=== PATIENT | female | born 1990 | race American Indian/Alaskan Native ===

== ENCOUNTER 2016-12-25 17:48 | Emergency (ER) | payer MEDICAID, OTHER ==
[2016-12-25 18:28] VITALS: BP 101/57
== END 2016-12-26 02:24 | disposition left against medical advice (07) ==
LOC: ED 17:48
DX: R10.9 Unspecified abdominal pain (principal); Z53.21 Procedure and treatment not carried out due to patient leaving prior to being seen by health care provider

== ENCOUNTER 2017-02-26 13:54 | Emergency (ER) | payer MEDICAID ==
[2017-02-26] MEDS ORDERED: NACL 0.9% 1000 ML 1,000 ML IV ONE (16:35)
--- NOTE | 2017-02-26 16:40 | Emergency Department Report ---
HPI - General Chief Complaint: Syncope Time Seen by Provider: 02/26/17 16:27 - HPI HPI: Room 21 The patient is 26 should female presenting with a chief complaint of syncopal episode. The patient states for 1 week she has felt weak when standing for an extended period of time. The patient states she saw her BRANCH OFFICER about this yesterday and was encouraged to take her iron tablets. Today the patient was at work and states that things "got blurry" and that she passed out. The patient states she awakened to see EMS. When asked how she is feeling around the patient replies she feels "okay." Patient denies any chest pain or abdominal pain cough or vaginal bleeding. Location: [see above] Duration: [see above] Quality: Syncope Severity: [see above] Modifying factors: [see above] Context: [see above] Mode of transportation: [not driving] ED Past Medical Hx - Past Medical History Hx Asthma: Yes Additional medical history: GALLSTONES, Anemia - Surgical History Additional Surgical History: - Family History Family history: no significant - Social History Smoking Status: Never Smoker Substance Use Type: None - Medications Home Medications: Home Medications Medication Instructions Recorded Confirmed Last Taken Type Docusate Sodium [Colace] 100 mg PO BID PRN #60 capsule 05/11/14 Unknown Rx Ferrous Sulfate [Feosol 325 MG tab] 325 mg PO QDAY #30 tablet 05/11/14 Unknown Rx Ibuprofen [Motrin 800 MG tab] 800 mg PO TID PRN #30 tablet 05/11/14 Unknown Rx oxyCODONE /ACETAMINOPHEN [Percocet 1 tab PO Q6HR PRN #30 tablet 05/11/14 Unknown Rx 5/325] ED Review of Systems ROS: Stated complaint: SYNCOPE Other details as noted in HPI Comment: All other systems reviewed and negative Constitutional: weakness. denies: chills, fever Eyes: as per HPI ENT: denies: ear pain, throat pain Respiratory: denies: cough, wheezing Cardiovascular: denies: chest pain, palpitations Endocrine: no symptoms reported Gastrointestinal: denies: abdominal pain, nausea, diarrhea Genitourinary: denies: urgency, dysuria, discharge Musculoskeletal: denies: back pain, joint swelling, arthralgia Skin: denies: rash, lesions Neurological: other (syncope) Psychiatric: denies: anxiety, depression Hematological/Lymphatic: denies: easy bleeding, easy bruising Physical Exam - Physical Exam Vital Signs: Vital Signs 02/26/17 02/26/17 14:57 15:04 Temperature 97.9 F 97.9 F Pulse Rate 80 80 Respiratory 16 16 Rate Blood Pressure 94/42 Blood Pressure 94/42 [Right] O2 Sat by Pulse 96 96 Oximetry Physical Exam: GENERAL: The patient is well-developed well-nourished female lying on stretcher not appearing to be in acute distress. [] HEENT: Normocephalic. Atraumatic. Extraocular motions are intact. Patient has moist mucous membranes. NECK: Supple. No meningitic signs are noted. Trachea midline CHEST/LUNGS: Clear to auscultation. There is no respiratory distress noted. HEART/CARDIOVASCULAR: Regular. There is no tachycardia. There is no gallop rub or murmur. ABDOMEN: Abdomen is soft, nontender. Patient has normal bowel sounds. The patient is gravid SKIN: There is no rash. There is no edema. There is no diaphoresis. NEURO: The patient is awake, alert, and oriented. The patient is cooperative. The patient has no focal neurologic deficits. The patient has normal speech. Cranial nerves II through XII grossly intact, no drift MUSCULOSKELETAL: There is no evidence of acute injury. ED Course Vital Signs 02/26/17 02/26/17 14:57 15:04 Temperature 97.9 F 97.9 F Pulse Rate 80 80 Respiratory 16 16 Rate Blood Pressure 94/42 Blood Pressure 94/42 [Right] O2 Sat by Pulse 96 96 Oximetry ED Medical Decision Making - Lab Data Result diagrams: 02/26/17 16:45 02/26/17 16:45 Laboratory Tests 02/26/17 02/26/17 02/26/17 16:45 16:45 16:45 WBC 4.8 RBC 3.04 L Hgb 9.0 L Hct 26.8 L MCV 88 MCH 30 MCHC 33 RDW 16.1 H Plt Count 160 Lymph % (Auto) 28.5 [place] % (Auto) 4.3 Eos % (Auto) 0.1 Baso % (Auto) 0.3 Lymph # 1.4 [place] # 0.2 Eos # 0.0 Baso # 0.0 Seg Neutrophils % 66.8 Seg Neutrophils # 3.2 PT 12.9 INR 0.98 APTT 30.0 Sodium 133 L Potassium 3.2 L Chloride 99.2 Carbon Dioxide 21 L Anion Gap 16 BUN 6 L Creatinine 0.3 L Estimated GFR > 60 BUN/Creatinine Ratio 20.00 Glucose 82 Calcium 8.3 L Total Bilirubin 0.2 AST 14 ALT 6 L Alkaline Phosphatase 61 Total Creatine Kinase CK-MB (CK-2) CK-MB (CK-2) Rel Index Troponin T Total Protein 6.6 Albumin 3.2 L Albumin/Globulin Ratio 0.9 Urine Color Urine Turbidity Urine pH Ur Specific [place] Urine Protein Urine Glucose (UA) Urine Ketones Urine Blood Urine Nitrite Urine Bilirubin Urine Urobilinogen Ur Leukocyte Esterase Urine WBC (Auto) Urine RBC (Auto) U Epithel Cells (Auto) 02/26/17 02/26/17 16:45 17:52 WBC RBC Hgb Hct MCV MCH MCHC RDW Plt Count Lymph % (Auto) [place] % (Auto) Eos % (Auto) Baso % (Auto) Lymph # [place] # Eos # Baso # Seg Neutrophils % Seg Neutrophils # PT INR APTT Sodium Potassium Chloride Carbon Dioxide Anion Gap BUN Creatinine Estimated GFR BUN/Creatinine Ratio Glucose Calcium Total Bilirubin AST ALT Alkaline Phosphatase Total Creatine Kinase 31 CK-MB (CK-2) < 1.0 CK-MB (CK-2) Rel Index 3.2 Troponin T < 0.010 Total Protein Albumin Albumin/Globulin Ratio Urine Color Yellow Urine Turbidity Clear Urine pH 7.0 Ur Specific [place] 1.008 Urine Protein <15 mg/dl Urine Glucose (UA) Neg Urine Ketones 20 Urine Blood Neg Urine Nitrite Neg Urine Bilirubin Neg Urine Urobilinogen < 2.0 Ur Leukocyte Esterase Neg Urine WBC (Auto) < 1.0 Urine RBC (Auto) 1.0 U Epithel Cells (Auto) 2.0 - EKG Data -: EKG Interpreted by [place] EKG shows normal: sinus rhythm Rate: normal - EKG Data When compared to previous EKG there are: previous EKG unavailable Interpretation: nonspecific ST-T wave [place] - Differential Diagnosis symptomatic anemia, dehydration, vasovagal syncope Critical care attestation.: If time is entered above; I have spent that time in minutes in the direct care of this critically ill patient, excluding procedure time. ED Disposition Clinical Impression: Syncope, Dehydration, Hypokalemia Disposition: DISCHARGED TO HOME OR SELFCARE Is pt being admited?: No Does the pt Need Aspirin: No Condition: Stable Instructions: Syncope (ED) Additional Instructions: Return to the emergency department immediately should you develop worsening symptoms, fever, inability to tolerate food or liquid or any other concerns. Referrals: PRIMARY CARE, [Primary Care Provider] - 3-5 Days Time of Disposition: 19:06
[2017-02-26 17:30] LABS: Basophils % (Auto) 0.3 % (0.0-1.8); Eosinophils % (Auto) 0.1 % (0.0-4.3); Hematocrit 26.8 % (30.3-42.9); Mean Corpuscular HGB Conc 33 % (30-34); Mean Corpuscular Hemoglobin 30 pg (28-32); Mean Corpuscular Volume 88 fl (79-97); Platelet Count 160 K/mm3 (140-440); Red Blood Count 3.04 M/mm3 (3.65-5.03); Red Cell Distribution Width 16.1 % (13.2-15.2); White Blood Count 4.8 K/mm3 (4.5-11.0)
[2017-02-26 17:40] LABS: INR 0.98 (0.87-1.13)
[2017-02-26 18:18] LABS: Creatine Kinase MB < 1.0 ng/mL (0.0-4.0)
[2017-02-26 18:34] LABS: Alanine Aminotransferase 6 units/L (7-56); Albumin 3.2 g/dL (3.9-5); Albumin/Globulin Ratio 0.9 %; Alkaline Phosphatase 61 units/L (35-129); Anion Gap 16 mmol/L; Bilirubin,Total 0.2 mg/dL (0.1-1.2); Blood Urea Nitrogen 6 mg/dL (7-17); Calcium 8.3 mg/dL (8.4-10.2); Carbon Dioxide 21 mmol/L (22-30); Chloride 99.2 mmol/L (98-107); Glucose 82 mg/dL (65-100); Potassium 3.2 mmol/L (3.6-5.0); Sodium 133 mmol/L (137-145); Total Protein 6.6 g/dL (6.3-8.2)
[2017-02-26 18:35] LABS: Creatine Kinase 31 units/L (30-135)
[2017-02-26] MEDS ORDERED: K-DUR PO ONE (18:39)
[2017-02-26 19:00] LABS: Bilirubin,Urine NEG (Negative); Blood,Urine NEG (Negative); Ketones,Urine 20 mg/dL (Negative); Leukocyte Esterase,Urine NEG (Negative); Nitrite,Urine NEG (Negative); Protein,Urine <15 mg/dL mg/dL (Negative); Urobilinogen,Urine < 2.0 mg/dL (<2.0); WBC,Urine < 1.0 /HPF (0.0-6.0)
[2017-02-26 19:04] VITALS: BP 103/55
== END 2017-02-26 19:21 | disposition home or self-care (01) ==
LOC: ED 13:54
DX: E86.0 Dehydration (principal); E87.6 Hypokalemia; R55 Syncope and collapse; J45.909 Unspecified asthma, uncomplicated; D64.9 Anemia, unspecified
CPT/HCPCS: 36415; 80053; 81001; 82550; 82553; 84484; 85025; 85610; 85730; 93005; 93010; 96360; 96361; 99284; J7030

== ENCOUNTER 2017-04-15 14:19 | Outpatient (CLI) | payer OTHER, MEDICAID ==
[2017-04-15] MEDS ORDERED: TYLENOL PO ONE (15:31)
[2017-04-15 15:40] LABS: Bilirubin,Urine NEG (Negative); Blood,Urine NEG (Negative); Ketones,Urine TR mg/dL (Negative); Leukocyte Esterase,Urine MOD (Negative); Mucus,Urine 3+ /HPF; Nitrite,Urine NEG (Negative)
[2017-04-16 12:12] VITALS: BP 98/64
== END 2017-04-15 16:00 | disposition home or self-care (01) ==
LOC: TRG 14:19
PROVIDERS: ATTEND Obstetrics & Gynecology
DX: O47.02 False labor before 37 completed weeks of gestation, second trimester (principal); Z3A.22 22 weeks gestation of pregnancy
CPT/HCPCS: 81001

== ENCOUNTER 2017-06-29 21:09 | Outpatient (CLI) | payer OTHER, MEDICAID ==
[2017-06-29] MEDS ORDERED: LACTATED RINGERS 500 ML IV ONE (21:30)
[2017-06-29 22:12] VITALS: BP 100/58
[2017-06-29 22:42] LABS: Bilirubin,Urine NEG (Negative); Blood,Urine NEG (Negative); Ketones,Urine TR mg/dL (Negative); Leukocyte Esterase,Urine TR (Negative); Mucus,Urine 1+ /HPF; Nitrite,Urine NEG (Negative); Protein,Urine <15 mg/dL mg/dL (Negative)
== END 2017-06-29 23:22 | disposition home or self-care (01) ==
LOC: TRG 21:09
PROVIDERS: ATTEND Obstetrics & Gynecology
DX: O26.893 Other specified pregnancy related conditions, third trimester (principal); R10.9 Unspecified abdominal pain; M54.9 Dorsalgia, unspecified; Z3A.33 33 weeks gestation of pregnancy
CPT/HCPCS: 81001; 96360; J7120

== ENCOUNTER 2017-07-06 20:26 | Outpatient (CLI) | payer OTHER, MEDICAID ==
[2017-07-06 20:49] VITALS: BP 103/62
== END 2017-07-06 21:35 | disposition home or self-care (01) ==
LOC: TRG 20:26
PROVIDERS: ATTEND Obstetrics & Gynecology
DX: O47.03 False labor before 37 completed weeks of gestation, third trimester (principal); Z3A.34 34 weeks gestation of pregnancy

== ENCOUNTER 2017-07-10 11:03 | Outpatient (CLI) | payer OTHER, MEDICAID ==
[2017-07-10] MEDS ORDERED: LACTATED RINGERS 500 ML IV ONE (11:15)
[2017-07-10 11:56] LABS: Bacteria,Urine 1+ /HPF (Negative); Bilirubin,Urine NEG (Negative); Blood,Urine NEG (Negative); Ketones,Urine NEG (Negative); Leukocyte Esterase,Urine SM (Negative); Nitrite,Urine NEG (Negative); Protein,Urine <15 mg/dL mg/dL (Negative)
[2017-07-10] MEDS ORDERED: BRETHINE ONE (12:15)
[2017-07-10] MEDS ORDERED: BRETHINE SUB-Q ONE ×2 (12:22→12:55)
[2017-07-10 12:38] VITALS: BP 108/69
[2017-07-10] MEDS ORDERED: LACTATED RINGERS 1,000 ML IV ONE (12:40)
--- NOTE | 2017-07-10 13:15 | Progress Note ---
Assessment and Plan A: at 34 weeks, 4 days gestation. History of + FFN this week. Threatened PTL. P: IV hydration provided; Brethine administered. Celestone Soluspan ordered. UA/ UDS. Consulted with Dr. Welch regarding patient and he states not to give any more Brethine and to order an US for cervical length and presentation. US ordered as recommended by Dr. Welch. Subjective - Subjective Date of service: 07/10/17 Principal diagnosis: at 34 weeks, 4 days gestation; complains of contractions Interval history: 26 year old presents to L&D triage complaining of contractions since yesterday "coming and going." Patient denies vaginal bleeding or leaking of fluid. Patient reports active movement. Patient reports she saw Dr. Aleman at [facility] office a few days ago and had a positive FFN and was told she was at risk for labor/delivery. Patient denies any complications other than this during this . She has had 2 previous deliveries: one for breech presentation and the second one was an elective repeat . Patient reports: movement normal, contractions, no loss of fluid, no vaginal bleeding Objective - Vital Signs Vital Signs: Vital Signs - 12hr 07/10/17 07/10/17 07/10/17 11:04 11:09 11:11 Temperature Pulse Rate 74 82 82 Respiratory Rate Blood Pressure 108/69 O2 Sat by Pulse 100 100 Oximetry 07/10/17 07/10/17 07/10/17 11:13 11:14 11:19 Temperature 96.7 F L Pulse Rate 87 86 81 Respiratory 20 Rate Blood Pressure 108/69 O2 Sat by Pulse 100 98 Oximetry 07/10/17 07/10/17 07/10/17 11:24 11:29 11:34 Temperature Pulse Rate 86 72 75 Respiratory Rate Blood Pressure O2 Sat by Pulse 84 100 99 Oximetry 07/10/17 07/10/17 07/10/17 11:39 11:44 11:49 Temperature Pulse Rate 80 73 68 Respiratory Rate Blood Pressure O2 Sat by Pulse 99 100 100 Oximetry 07/10/17 07/10/17 07/10/17 11:54 11:59 12:04 Temperature Pulse Rate 83 77 73 Respiratory Rate Blood Pressure O2 Sat by Pulse 100 100 100 Oximetry 07/10/17 07/10/1717 12:09 12:14 12:16 Temperature Pulse Rate 74 66 73 Respiratory Rate Blood Pressure O2 Sat by Pulse 100 100 90 Oximetry 07/10/17 07/10/17 07/10/17 12:19 12:22 12:24 Temperature Pulse Rate 68 76 72 Respiratory Rate Blood Pressure O2 Sat by Pulse 100 89 100 Oximetry 07/10/17 07/10/17 07/10/17 12:29 12:30 12:34 Temperature Pulse Rate 84 96 H 78 Respiratory Rate Blood Pressure O2 Sat by Pulse 100 84 100 Oximetry 07/10/17 07/10/17 07/10/17 12:39 12:42 12:44 Temperature Pulse Rate 82 86 75 Respiratory Rate Blood Pressure O2 Sat by Pulse 100 87 100 Oximetry 07/10/17 07/10/17 07/10/17 12:49 12:54 12:59 Temperature Pulse Rate 78 77 86 Respiratory Rate Blood Pressure O2 Sat by Pulse 99 100 100 Oximetry 07/10/17 07/10/17 07/10/17 13:04 13:09 13:11 Temperature Pulse Rate 94 H 77 81 Respiratory Rate Blood Pressure O2 Sat by Pulse 100 100 85 Oximetry - Exam Narrative Exam: Well appearing, alert, oriented, NAD. Afebrile. Vital signs stable. Abdomen soft , nontender, no contractions palpated. Rare contraction noted per monitor. FHR 145 with moderate variability and accelerations; category 1 FHR tracing. Cervix check upon arrival: FT/thick/posterior. No vaginal bleeding or discharge or leaking of fluid seen. Abdomen: Present: normal appearance, soft. Absent: distention, tenderness Uterus: Present: normal, fundal height above umbilicus FHR: category 1 Uterine Contraction Monitor Mode: External Uterine Contraction Frequency (min): No palpable ctx Uterine Contraction Duration: Rare ctx on monitor - Labs Labs: Laboratory Results - last 24 hr 07/10/17 11:15 Urine Color Yellow Urine Turbidity Clear Urine pH 7.0 Ur Specific [place] 1.009 Urine Protein <15 mg/dl Urine Glucose (UA) Neg Urine Ketones Neg Urine Blood Neg Urine Nitrite Neg Urine Bilirubin Neg Urine Urobilinogen 2.0 Ur Leukocyte Esterase Sm Urine WBC (Auto) 2.0 Urine RBC (Auto) 2.0 U Epithel Cells (Auto) 13.0 Urine Bacteria (Auto) 1+
[2017-07-10] MEDS ORDERED: CELESTONE SOLUSPAN IM SCH (14:00)
[2017-07-10 14:02] LABS: Urine Drugs of Abuse Note Disclamer
[2017-07-10] MEDS ORDERED: PROCARDIA*For Tocolysis only PO ONE (15:00)
--- NOTE | 2017-07-10 15:55 | Event Note ---
Date: 07/10/17 Dr. Welch states to discharge patient home and to administer Procardia 10 mg po prior to discharge. Per Dr. Welch's order patient is to take Procardia 10 mg po every 8 hours at home (Rx to [facility]) and to return to L&D tomorrow to get second dose of Celestone Soluspan and to follow up in [address] Aleman at [facility] office. Advised patient of this plan and these orders given by Dr. Welch. Patient voiced understanding of all above instructions. Signs of labor and warning signs discussed with patient.
--- NOTE | 2017-07-11 10:31 | Ultrasound Report ---
ULTRASOUND OB LIMITED ULTRASOUND OB TRANSVAGINAL History: well being Technique: Transabdominal and transvaginal ultrasound with Doppler interrogation. Gestation: Single Position: Cephalic Heart Rate: 147 BPM Cervical length: 2.6 cm (Normal > 3 cm)
== END 2017-07-10 15:40 | disposition home or self-care (01) ==
LOC: TRG 11:03
PROVIDERS: ATTEND Obstetrics & Gynecology
DX: O62.9 Abnormality of forces of labor, unspecified (principal); O47.02 False labor before 37 completed weeks of gestation, second trimester; Z3A.34 34 weeks gestation of pregnancy
CPT/HCPCS: 59025; 76815; 76817; 80307; 81001; 96360; 96361; 96372; J0702; J3105; J7120

== ENCOUNTER 2017-07-11 14:37 | Outpatient (CLI) | payer OTHER, MEDICAID ==
[2017-07-12] MEDS ORDERED: CELESTONE SOLUSPAN IM SCH (10:00)
[2017-07-14 00:29] VITALS: BP 113/66
== END 2017-07-11 15:07 | disposition home or self-care (01) ==
LOC: TRG 14:37
PROVIDERS: ATTEND Obstetrics & Gynecology
DX: O36.0130 Maternal care for anti-D [Rh] antibodies, third trimester, not applicable or unspecified (principal); Z3A.34 34 weeks gestation of pregnancy
CPT/HCPCS: 96372

== ENCOUNTER 2017-07-13 23:59 | Outpatient (CLI) | payer OTHER, MEDICAID ==
[2017-07-14 00:33] VITALS: BP 113/66
[2017-07-14] MEDS ORDERED: LACTATED RINGERS 1,000 ML IV ONE (00:33)
[2017-07-14 01:31] LABS: Bacteria,Urine 1+ /HPF (Negative); Bilirubin,Urine NEG (Negative); Blood,Urine NEG (Negative); Ketones,Urine NEG (Negative); Leukocyte Esterase,Urine TR (Negative); Mucus,Urine FEW /HPF; Nitrite,Urine NEG (Negative); Protein,Urine <15 mg/dL mg/dL (Negative); Urobilinogen,Urine < 2.0 mg/dL (<2.0); WBC,Urine < 1.0 /HPF (0.0-6.0)
== END 2017-07-14 01:49 | disposition home or self-care (01) ==
LOC: TRG 23:59
PROVIDERS: ATTEND Obstetrics & Gynecology
DX: O62.9 Abnormality of forces of labor, unspecified (principal); Z3A.35 35 weeks gestation of pregnancy
CPT/HCPCS: 81001; 96360; J7120

== ENCOUNTER 2017-07-16 19:45 | Outpatient (CLI) | payer OTHER, MEDICAID ==
[2017-07-16 20:08] VITALS: BP 106/69
[2017-07-16 21:16] LABS: Bilirubin,Urine NEG (Negative); Blood,Urine NEG (Negative); Ketones,Urine NEG (Negative); Leukocyte Esterase,Urine SM (Negative); Mucus,Urine FEW /HPF; Nitrite,Urine NEG (Negative); Protein,Urine <15 mg/dL mg/dL (Negative)
[2017-07-16] MEDS ORDERED: LACTATED RINGERS 1,000 ML IV ONE (21:21)
--- NOTE | 2017-07-16 23:25 | Progress Note ---
Assessment and Plan A: at 35 weeks, 3 days gestation, bleeding. P: Consulted with Dr. Crandall regarding this patient, her complaints, her SVE, and results of speculum exam and US. Dr. Crandall states to discharge patient to home. Discussed this plan with patient and s.o. Warning signs and signs of PTL discussed with pt. Subjective - Subjective Date of service: 07/16/17 Principal diagnosis: at 35 weeks, 3 days gestation; vaginal bleeding Interval history: Patient is a 27 year old who presented to triage with complaint of bleeding from vagina after she got into the bathtub at 7:00 PM this evening. Patient denies leaking of fluid. She denies regular contractions. Pt. reports active movement. Patient reports: vaginal bleeding Objective - Vital Signs Vital Signs: Vital Signs - 12hr 07/16/17 07/16/17 07/16/17 20:09 20:10 20:14 Temperature Pulse Rate 80 72 73 Respiratory Rate Blood Pressure 106/69 O2 Sat by Pulse 99 99 Oximetry 07/16/17 07/16/17 07/16/17 20:20 20:22 20:25 Temperature 98.5 F Pulse Rate 70 72 68 Respiratory 16 Rate Blood Pressure 106/69 O2 Sat by Pulse 99 99 Oximetry 07/16/17 07/16/17 07/16/17 20:30 20:35 20:40 Temperature Pulse Rate 65 65 80 Respiratory Rate Blood Pressure O2 Sat by Pulse 99 99 98 Oximetry 07/16/17 20:45 Temperature Pulse Rate 76 Respiratory Rate Blood Pressure O2 Sat by Pulse 99 Oximetry - Exam Abdomen: Present: normal appearance, soft. Absent: distention, tenderness, guarding Uterus: Present: normal, fundal height above umbilicus FHR: auscultation normal, category 1 (US shows fundal placenta, no signs of abruption, and BPP 8/8. SSE performed and no blood was noted in vagina, just a white discharge, small amount.) Uterine Contraction Monitor Mode: External Cervical Dilatation: 0.5 Cervical Effacement Percentage: 70 station: -3 Uterine Contraction Pattern: Irregular - Labs Labs: Abnormal Labs 07/16/17 20:27 Urine WBC (Auto) 7.0 H Laboratory Results - last 24 hr 07/16/17 20:27 Urine Color Yellow Urine Turbidity Slightly-cloudy Urine pH 7.0 Ur Specific [place] 1.017 Urine Protein <15 mg/dl Urine Glucose (UA) Neg Urine Ketones Neg Urine Blood Neg Urine Nitrite Neg Urine Bilirubin Neg Urine Urobilinogen 4.0 Ur Leukocyte Esterase Sm Urine WBC (Auto) 7.0 H Urine RBC (Auto) 2.0 U Epithel Cells (Auto) 8.0 Urine Mucus Few
--- NOTE | 2017-07-17 10:02 | Ultrasound Report ---
ULTRASOUND OB LIMITED History: Vaginal bleeding Technique: Transabdominal ultrasound with Doppler interrogation. Gestation: Single Position: Cephalic Placenta: Fundal Placental Grade: 2 No evidence for abruption. Heart Rate: 146 BPM
--- NOTE | 2017-07-17 10:03 | Ultrasound Report ---
ULTRASOUND BIOPHYSICAL PROFILE: History: Vaginal bleeding during Technique: Transabdominal ultrasound with Doppler interrogation. 2 - breathing movements 2 - movements 2 - posture and tone 2 - Qualitative amniotic fluid volume 8 - TOTAL SCORE OF POSSIBLE 8 Heart Rate (bpm) 146
== END 2017-07-16 22:21 | disposition home or self-care (01) ==
LOC: TRG 19:45
PROVIDERS: ATTEND Obstetrics & Gynecology
DX: O46.93 Antepartum hemorrhage, unspecified, third trimester (principal); O47.03 False labor before 37 completed weeks of gestation, third trimester; Z3A.35 35 weeks gestation of pregnancy
CPT/HCPCS: 59025; 76815; 76819; 81001